=== PATIENT | male | born 1985 | race Native Hawaiian/Other Pacific Islander ===

== ENCOUNTER 2018-07-03 14:04 | Outpatient (CLI) | payer OTHER ==
[2018-07-03 14:33] LABS: PLATELET COUNT 246 K/uL (142-355)
[2018-07-03 14:57] LABS: POTASSIUM 4.2 mmol/L (3.6-5.2)
== END 2018-07-03 19:30 | disposition home or self-care (01) ==
LOC: LABW 14:04 → LAB 07-04 12:40
PROVIDERS: Internal Medicine
DX: R10.9 Unspecified abdominal pain (principal); K57.90 Diverticulosis of intestine, part unspecified, without perforation or abscess without bleeding
CPT/HCPCS: 36415; 80053; 81000; 82306; 82552; 82607; 82728; 82746; 83036; 84439; 84443; 84550; 85027; 86038; 86430

== ENCOUNTER 2020-04-07 15:00 | Outpatient (CLI) | payer BC | END 2020-04-07 19:31 | disposition home or self-care (01) | LOC: RAD 15:00 | PROVIDERS: ATTEND Physician Assistant | DX: F41.9 Anxiety disorder, unspecified (principal); R09.89 Other specified symptoms and signs involving the circulatory and respiratory systems ==